=== PATIENT | male | born 1940 | race Caucasian/White ===

== ENCOUNTER 2018-10-31 06:25 | Outpatient (CLI) | payer MEDICARE ==
[~2018-10-31] VITALS: Ht 190.5 cm; Wt 129.7 kg
[2018-10-31] VITALS (16 sets, daily range): BP systolic 107–148; BP diastolic 38–64
[~2018-10-31 06:25] MED LIST: ASPI325T8 PO; CLOP75TA57 PO; DIAZ5TAB4 PO; GEMF600T8 PO; HYDR-2145 PO; OMEG10005 PO; OXYC-411 PO; SIMV40TA3 PO; TRAN4TAB22 PO; VERA240T72 PO
[2018-10-31] MEDS ORDERED: ALBU2.5V8 INH (07:46)
[2018-10-31] MEDS ORDERED: DULO30CA2 PO (07:46)
[2018-10-31] MEDS ORDERED: LIDOCAINE WITH 8.4% SOD BICARB 3 ML DISP.SYRIN. ONE ×3 (07:51→08:45)
[2018-10-31] MEDS ORDERED: IODIXANOL 320 MG/ML 100 ML VIAL. ONE (07:51)
[2018-10-31 08:16] LABS: BASO % 1 % (0-3); EOS # 0.1 x10^3/uL (0.0-0.7); EOS % 2 % (0-3); HEMATOCRIT 44.1 % (39.0-53.0); HEMOGLOBIN 14.9 g/dL (13.0-17.5); LYMPH # 1.2 x10^3/uL (1.0-4.8); LYMPH % 22 % (24-48); MEAN CORPUSCULAR HEMOGLOBIN 30 pg (25-35); MEAN CORPUSCULAR HGB CONC 34 g/dL (31-37); MEAN CORPUSCULAR VOLUME 89 fL (79-100); MONO # 0.8 x10^3/uL (0.0-1.1); MONO % 15 % (0-9); NEUT # 3.6 x10^3uL (1.8-7.7); NEUT % 62 % (31-73); PLATELET COUNT 168 x10^3/uL (140-400); RED BLOOD COUNT 4.98 x10^6/uL (4.30-5.70); WHITE BLOOD COUNT 5.8 x10^3/uL (4.0-11.0)
[2018-10-31 08:22] LABS: CALCIUM 10.1 mg/dL (8.5-10.1); CREATININE 1.1 mg/dL (0.7-1.3); GFR 65.1; POTASSIUM 3.7 mmol/L (3.5-5.1)
[2018-10-31] MEDS ORDERED: IV NORMAL SALINE 1000ML BAG 1,000 ML IV SCH (08:30)
[2018-10-31 08:33] LABS: PROTHROMBIN TIME PATIENT 14.3 SEC (11.7-14.0)
[2018-10-31] MEDS ORDERED: fentaNYL PF VIAL 100 MCG/2 ML VIAL ONE (08:38)
[2018-10-31] MEDS ORDERED: HEPARIN for IV BOLUS 10,000 UNIT/10 ML VIAL. ONE (08:38)
[2018-10-31] MEDS ORDERED: MIDAZOLAM HCL/PF 2 MG/2 ML VIAL. ONE (08:38)
[2018-10-31] MEDS ORDERED: PROTAMINE 50 MG/5 ML VIAL. IV ONE ×2 (09:24→09:45)
[2018-10-31] MEDS ORDERED: fentaNYL PF VIAL 100 MCG/2 ML VIAL IV ONE (09:30)
[2018-10-31] MEDS ORDERED: LIDOCAINE WITH 8.4% SOD BICARB 3 ML DISP.SYRIN. IJ ONE (09:30)
[2018-10-31] MEDS ORDERED: IODIXANOL 320 MG/ML 100 ML VIAL. IART ONE (09:30)
[2018-10-31] MEDS ORDERED: HEPARIN for IV BOLUS 10,000 UNIT/10 ML VIAL. IV ONE (09:30)
[2018-10-31] MEDS ORDERED: MIDAZOLAM HCL/PF 2 MG/2 ML VIAL. IV ONE (09:30)
--- NOTE | 2018-10-31 09:49 | PDOC ---
BRIEF OPERATIVE NOTE Pre-Op Diagnosis PVD, left leg bypass stenosis Previous left femoral-AT bypass COPD Post-Op Diagnosis same Procedure Performed US guided right femoral artery access Abdominal aortogram with left leg runoff Left femoral-AT distal bypass graft [employer] (Drug coated balloon) Surgeon José Anesthesia Type: Local, Conscious Sedation Blood Loss 10ml Findings High grade stenosis of the distal left leg bypass (>70% improved to 0% post [employer]) Complications none LADONNA PAULA MD Oct 31, 2018 09:49
[2018-10-31] MEDS ORDERED: ACETAMINOPHEN 325 MG TABLET. PO PRN (10:00)
[2018-10-31] MEDS ORDERED: oxyCODONE/APAP 5/325 1 TAB TABLET PO PRN ×2 (10:00)
[2018-10-31] MEDS ORDERED: ALBUTEROL SULFATE 2.5 MG/3 ML NEBU. INH PRN (10:00)
--- NOTE | 2018-10-31 10:38 | OP ---
DATE OF SURGERY: 10/31/2018 PREOPERATIVE DIAGNOSES: 1. Peripheral vascular disease, status post left femoral to anterior tibial artery bypass. 2. Distal bypass graft stenosis. 3. Chronic obstructive pulmonary disease. 4. Hypertension. POSTOPERATIVE DIAGNOSES: 1. Peripheral vascular disease, status post left femoral to anterior tibial artery bypass. 2. Distal bypass graft stenosis. 3. Chronic obstructive pulmonary disease. 4. Hypertension. PROCEDURES: 1. Ultrasound-guided right femoral artery access. 2. Abdominal aortogram with selective left lower extremity arteriogram. 3. Left femoral to anterior tibial artery bypass distal graft angioplasty using drug-coated balloon. SURGEON: Mike Paula MD ANESTHESIA: Moderate sedation, local. INDICATIONS: The patient is a 78-year-old male with peripheral arterial disease. He has undergone a previous left femoral to anterior tibial artery bypass. Ultrasound showed recurrent narrowing of the distal graft just proximal to the anterior tibial anastomosis. He has significant increased velocities in the distal graft as well as decreased ankle brachial index. He presents for angiogram and possible percutaneous intervention. His last angioplasty of the similar area of narrowing was over 2 years ago. FINDINGS: Aortoiliac arteriogram: The abdominal aorta is patent. The renal arteries are patent bilaterally. He has no significant renal artery narrowing. Both common external and internal iliac arteries are patent. There is some diffuse atherosclerotic plaquing, but no significant narrowing. There is significant external iliac artery tortuosity mainly on the left. Left lower extremity arteriogram: The left common and deep femoral arteries are patent. The left superficial femoral artery occludes at its origin. There is a bypass graft arising from the distal common femoral artery extending down the anterolateral aspect of the left leg to the anterior tibial artery. There is a relatively focal (2 cm) length of irregular narrowing in the distal bypass graft resulting in at least 70% diameter narrowing. The distal anastomosis to the anterior tibial artery is patent without significant areas of narrowing. The anterior tibial artery extends down to the dorsalis pedis artery on the foot. There is collateral reconstitution of the peroneal artery more distally. The patient underwent angioplasty of the distal bypass graft narrowing with a 4 mm x 4 cm IN.PACT Admiral drug-coated balloon. Followup angiogram showed no residual narrowing. DESCRIPTION OF PROCEDURE: The patient was taken to the angiogram suite and placed upon the angiogram table. He underwent continuous cardiovascular monitoring. He remained hemodynamically stable. He was given IV sedation with Versed and fentanyl. Bilateral groins were prepped and draped in normal sterile fashion, 1% lidocaine was infused as local anesthetic in the right groin. Real time ultrasound was used to visualize the right common femoral artery. Micropuncture needle was used to cannulate the right common femoral artery in retrograde fashion. A guidewire was advanced without difficulty. Transitional sheath was advanced over the guidewire through this transitional sheath. A J-wire was inserted. Over the J wire a 5-[place] sheath was inserted. Through this 5-[place] sheath an Omniflush catheter was advanced to the suprarenal aorta. Contrast injected, images acquired using subtraction angiography of the abdomen with findings as noted above. The catheter was then withdrawn to the distal abdominal aorta. Oblique views were obtained of the pelvis and proximal thighs with findings as noted above. Omniflush catheter and angled Glidewire were used to cannulate the left common iliac artery. Guidewire was advanced distally. The catheter was advanced to the distal left external iliac artery. Contrast injected, images acquired in stage used on the left leg with findings as noted above. Glidewire was readvanced, the catheter was removed and angled Glidewire was then advanced and used to cannulate the origin of the left common femoral to anterior tibial bypass. The Glidewire was exchanged for a long Glidewire Advantage. This was advanced down into the distal portion of the bypass. The short 5-[place] sheath was removed and a 6-South African Terumo Destination sheath was advanced over the bifurcation. Needles catheter was then readvanced and positioned in the distal portion of the bypass. Contrast injected, images acquired over the distal bypass and distal anterior tibial artery with findings as noted above. Glidewire Advantage was then readvanced and advanced through the area of distal graft narrowing. He was given 9000 units of IV heparin. A 4 mm x 4 cm IN.PACT Admiral drug-coated balloon was placed through the area of distal bypass narrowing. This was slowly inflated to 10 atmospheres for 3 minutes. Followup angiogram showed excellent result with no residual narrowing. Sheath was withdrawn to the right common iliac artery. The Glidewire Advantage was withdrawn and readvanced into the abdominal aorta. The patient was given 40 mg of protamine. ACT was 150. Long sheath was exchanged for a short 6-[place] sheath to allow transfer to the bed. The sheath was subsequently removed and hemostasis obtained with digital compression. ESTIMATED BLOOD LOSS: 10 mL. SPECIMEN: None. CONTRAST INFUSED: 77 mL of Visipaque 320 contrast. FLUOROSCOPY TIME: 10.1 minutes. AIR KERMA: A total of 388 mGy. MIKE PAULA MD DR: DEE/winsome JOB#: [id number] / [id number]
[2018-10-31] MEDS ORDERED: OMEGA-3 FATTY ACIDS/FISH OIL 1,000 MG CAPSULE. PO SCH (11:00)
[2018-10-31] MEDS ORDERED: CLOPIDOGREL BISULFATE 75 MG TABLET PO SCH (11:00)
[2018-10-31] MEDS ORDERED: CALCIUM CARBONATE 500 MG TAB.CHEW PO PRN (11:15)
[2018-10-31] MEDS ORDERED: oxyCODONE/APAP 10/325 1 TAB TABLET PO SCH (13:00)
[2018-10-31] MEDS ORDERED: diazePAM 5 MG TABLET PO SCH (14:00)
[2018-10-31] MEDS ORDERED: DULoxetine HCL 30 MG CAPSULE.DR PO SCH (14:00)
[2018-10-31] MEDS ORDERED: VERAPAMIL SR 120 MG TABLET.ER. PO SCH (14:00)
[2018-10-31] MEDS ORDERED: LISINOPRIL 20 MG TABLET PO SCH (14:00)
[2018-10-31] MEDS ORDERED: GEMFIBROZIL 600 MG TABLET. PO SCH (14:00)
--- NOTE | 2018-10-31 16:16 | NUR ---
Pt A&Ox3. denies pain in either leg. just has chronic back pain. dressing on rt groin site is clean and dry. no bleeding or swelling noted. pt has a RBKA. he was assisted into his clothes and prosthesis. tolerating po well. d/c instructions given to pt and his . questions answered. gave pt his routine home meds earlier this afternoon. Prinivil was ordered but not given- pt and his stated that he does not take this med. out to vehicle per w/c. pt's to drive him home.
[2018-10-31] MEDS ORDERED: SIMVASTATIN 40 MG TABLET. PO SCH (21:00)
[2018-11-01] MEDS ORDERED: ASPIRIN 325 MG TABLET PO SCH (09:00)
[2018-11-01] MEDS ORDERED: hydroCHLOROthiazide 25 MG TABLET PO SCH (09:00)
== END 2018-10-31 16:16 | disposition home or self-care (01) ==
LOC: INTRAD 06:25
PROVIDERS: ATTEND Specialist
DX: I73.9 Peripheral vascular disease, unspecified (principal); I10 Essential (primary) hypertension; J44.9 Chronic obstructive pulmonary disease, unspecified; I77.1 Stricture of artery; I70.0 Atherosclerosis of aorta; Z98.890 Other specified postprocedural states; Z95.828 Presence of other vascular implants and grafts; Z79.899 Other long term (current) drug therapy
CPT/HCPCS: 36415; 37224; 75625; 75710; 76937; 80048; 85025; 85347; 85610; C1713; C1769; C1892; C1894; C2623; J1644; J2250; J3010; J7030; Q9967; 99152; 99153